=== PATIENT | male | born 1940 | race Caucasian/White ===

== ENCOUNTER 2016-07-26 20:26 | Inpatient (IN) | payer MEDICARE, OTHER, MEDICAID ==
[2016-07-26] MEDS ORDERED: Acetaminophen 500 MG Tab ONE (20:36)
--- NOTE | 2016-07-26 20:58 | EDM.PDOC ---
ED HPI GENERAL MEDICAL PROBLEM - General Chief Complaint: Neuro Symptoms/Deficits Stated Complaint: POSSIBLE STROKE Time Seen by Provider: 07/26/16 20:49 Source of Information: Reports: Patient, EMS, Family History Limitations: Reports: No Limitations, Altered Mental Status, Other ( Index Clerk Dr. Vicente Pettit in [facility] in [place] Wednesday.) - History of Present Illness INITIAL COMMENTS - FREE TEXT/NARRATIVE: Patient brought to ER via ambulance states some neurological changes and confusion noted around 7:00 pm this day. She states she and other family members were to a picnic today and patient chose to stay in car most of the day. She affirms he may have become over heated as he had access to water but did not drink any. She affirms recently dialysis with "higher concentration solution" Wednesday all labs were WNL. He did eat this am has not eaten since.Ambulance states when arrived to scene he was alert and talking to EMS no neurological deficit noted. Assisted to ambulance cart self ambulation. Onset: Today Onset Date: 07/26/16 Onset Time: 19:00 Duration: Hour(s): Associated Symptoms: Reports: Confusion, Fever/Chills, Loss of Appetite - Related Data Allergies Allergy/AdvReac Type Severity Reaction Status Date / Time Penicillins Allergy Hives Verified 07/26/16 20:23 Home Meds: Home Meds Acetaminophen [Tylenol] 1 - 2 tab PO DAILY PRN 10/27/13 [History] Aspirin 325 mg PO DAILY 10/27/13 [History] Diltiazem HCl [Dilt-XR] 120 mg PO DAILY 10/27/13 [History] Docusate Sodium [Colace] 100 mg PO TID PRN 10/27/13 [History] Furosemide [Furosemide] 20 mg PO DAILY 10/27/13 [History] Gemfibrozil [Lopid] 600 mg PO BID 10/27/13 [History] Losartan [Cozaar] 50 mg PO BID 10/27/13 [History] Metoprolol Succinate [Toprol Xl] 100 mg PO DAILY 10/27/13 [History] [place]-3/DHA/Epa/Fish Oil [[place]-3 Fish Oil 1,000 MG Sfgl] 1,000 mg PO DAILY 07/05 [History] Ondansetron [Zofran] 4 mg PO Q6H PRN 10/27/13 [History] Pantoprazole [Protonix] 40 mg PO DAILY 10/27/13 [History] Simvastatin [Simvastatin] 40 mg PO DAILY 10/27/13 [History] amLODIPine [Norvasc] 2.5 mg PO DAILY 10/27/13 [History] glipiZIDE [Glipizide Xl] 10 mg PO BID 10/27/13 [History] traMADol [Ultram] 50 mg PO TID PRN 10/27/13 [History] Albuterol [Proair HFA] 1 puff INH Q4H PRN 04/18/14 [History] Budesonide/Formoterol [Symbicort 160-4.5 Mcg Inhaler] 2 puff INH DAILY 04/18/14 [History] ClonazePAM [KlonoPIN] 1 mg PO BEDTIME PRN 04/18/14 [History] Gabapentin [Neurontin] 100 mg PO BID 04/18/14 [History] Omeprazole [Omeprazole] 20 mg PO DAILY 04/18/14 [History] Sucralfate [Carafate] 1 gm PO TID 04/18/14 [History] Tamsulosin HCl [Flomax] 0.4 mg PO DAILY 04/18/14 [History] Past Medical History HEENT History: Reports: Cataract, Hard of Hearing Cardiovascular History: Reports: Arrhythmia, CAD, Cardiomyopathy, Heart Valve Replacement, Other (See Below) (Bypass) Respiratory History: Reports: COPD Genitourinary History: Reports: Dialysis, Dialysis, Peritoneal Musculoskeletal History: Reports: Back Pain, Chronic, Osteoarthritis Neurological History: Reports: Concussion Psychiatric History: Reports: Other (See Below) ("Fugue") Endocrine/Metabolic History: Reports: Diabetes, Type II, Hypoparathyroidism, Osteoporosis Hematologic History: Reports: None Immunologic History: Reports: None Oncologic (Cancer) History: Reports: None Dermatologic History: Reports: None - Infectious Disease History Infectious Disease History: Reports: None, MRSA, Other (See Below) Social & Family History - Tobacco Use Smoking Status *Q: Unknown Ever Smoked Years of Tobacco use: 30 Used Tobacco, but Quit: Yes Month Tobacco Last Used: 4-5 years ago - Alcohol Use Alcohol Use History: Yes Alcohol Use in Last Twelve Months: No Alcohol Use Frequency: Binges (Not drank ETOH for 15 years) - Recreational Drug Use Recreational Drug Use: No - Living Situation & Occupation Living situation: Reports: , with Family 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 Denies: Chills, Fatigue, Night Sweats, Weight Loss, Weight Gain HEENT: Reports: Vision Change Respiratory: Reports: No Symptoms Cardiovascular: Reports: Blood Pressure Problem Endocrine: Reports: Fatigue GI/Abdominal: Reports: Decreased Appetite : Reports: Incontinence (Decreased output-), Other Musculoskeletal: Reports: No Symptoms Skin: Reports: No Symptoms Neurological: Reports: Confusion Psychiatric: Reports: No Symptoms Hematologic/Lymphatic: Reports: No Symptoms Immunologic: Reports: No Symptoms ED EXAM, NEURO - Physical Exam Exam: See Below Exam Limited By: Altered Mental Status General Appearance: Alert, WD/WN, No Apparent Distress Eye Exam: Bilateral Eye: EOMI, Normal Fundi, Normal Inspection, Nystagmus ( Negative), PERRL Ears: Normal External Exam, Normal Canal, Normal TMs, Hearing Loss Nose: Normal Inspection, Normal Mucosa, No Blood Throat/Mouth: Normal Inspection, Normal Lips, Normal Oropharynx, Normal Voice, No Airway Compromise Head Exam: Atraumatic, Normocephalic Neck: Normal Inspection, Supple, Non-Tender, Full Range of Motion Respiratory/Chest: No Respiratory Distress, Lungs Clear, Normal Breath Sounds Cardiovascular: Normal Peripheral Pulses, Regular Rate, Rhythm, No Edema, Systolic Murmur GI/Abdominal: Normal Bowel Sounds (Peritoneal dialysis port in RLQ region.), Soft, Non-Tender, Other (Male) Exam: Deferred Rectal (Males) Exam: Deferred Neurological: Alert, Normal Mood/Affect, Normal Dorsiflexion, CN II-XII Intact, Normal Plantar Flexion, Normal Reflexes, No Motor/Sensory Deficits, Oriented x 3 Back Exam: Normal Inspection, Full Range of Motion Extremities: Normal Inspection, Normal Range of Motion, Non-Tender, No Pedal Edema, Normal Capillary Refill Psychiatric: Normal Affect, Normal Mood Skin Exam: Warm, Dry, Intact, Normal Color, No Rash (Verbalization appropriate- deliberate) EKG INTERPRETATION Rhythm: NSR Course - Vital Signs Last Recorded V/S: Last Vital Signs Temp 38.7 C H 07/26/16 20:47 Pulse 75 07/26/16 20:47 Resp 18 07/26/16 20:47 BP 159/67 H 07/26/16 20:47 Pulse Ox 97 07/26/16 20:47 - Orders/Labs/Meds Orders: Active Orders 24 hr Category Date Time Status C-REACTIVE PROTEIN [CHEM] Stat Lab 07/26/16 20:38 Ordered CBC WITH AUTO DIFF [HEME] Stat Lab 07/26/16 20:38 Ordered COMPREHENSIVE METABOLIC PN,CMP [CHEM] Stat Lab 07/26/16 20:38 Ordered CREATINE KINASE,CK [CHEM] Stat Lab 07/26/16 20:38 Ordered CULTURE BLOOD [BC] Stat Lab 07/26/16 20:41 Ordered CULTURE BLOOD [BC] Stat Lab 07/26/16 20:41 Ordered PTT,PARTIAL THROMBOPLSTIN TIME [COAG] Stat Lab 07/26/16 20:38 Ordered TROPONIN I [CHEM] Stat Lab 07/26/16 20:38 Ordered UA W/MICROSCOPIC [URIN] Stat Lab 07/26/16 20:38 Uncollected Blood Culture x2 Reflex Set [OM.PC] Stat Oth 07/26/16 20:41 Ordered Meds: Medications Discontinued Medications Generic Name Dose Route Start Last Admin Trade Name Freq PRN Reason Stop Dose Admin Acetaminophen Confirm 07/26/16 20:36 Tylenol Extra Strength Administered 07/26/16 20:37 Dose 1,000 mg .ROUTE .STK-MED ONE Departure - Departure Time of Disposition: 21:34 Disposition: Refer to Observation Condition: fair Clinical Impression: Confusion, Renal failure (ARF), acute on chronic, Febrile illness, acute, Leukocytosis, unspecified - Discharge Information Forms: ED Department Discharge - Problem List & Annotations (1) Confusion SNOMED Code(s): 482881350 Code(s): R41.0 - DISORIENTATION, UNSPECIFIED Status: Acute (2) Renal failure (ARF), acute on chronic SNOMED Code(s): 254758834 Code(s): N17.9 - ACUTE KIDNEY FAILURE, UNSPECIFIED; N18.9 - CHRONIC KIDNEY DISEASE, UNSPECIFIED Status: Acute Qualifiers: Chronic kidney disease stage: on chronic dialysis (3) Febrile illness, acute SNOMED Code(s): 067517879 Code(s): R50.9 - FEVER, UNSPECIFIED Status: Acute (4) Leukocytosis, unspecified SNOMED Code(s): 660434845, 287956640 Code(s): D72.829 - ELEVATED WHITE BLOOD CELL COUNT, UNSPECIFIED Status: Acute - My Orders Last 24 Hours: My Active Orders 07/26/16 20:38 C-REACTIVE PROTEIN [CHEM] Stat CBC WITH AUTO DIFF [HEME] Stat COMPREHENSIVE METABOLIC PN,CMP [CHEM] Stat CREATINE KINASE,CK [CHEM] Stat PTT,PARTIAL THROMBOPLSTIN TIME [COAG] Stat TROPONIN I [CHEM] Stat UA W/MICROSCOPIC [URIN] Stat 07/26/16 20:41 CULTURE BLOOD [BC] Stat CULTURE BLOOD [BC] Stat Blood Culture x2 Reflex Set [OM.PC] Stat - Assessment/Plan Admission H&P: Please use this note as an admission H&P Last 24 Hours: My Active Orders 07/26/16 20:38 C-REACTIVE PROTEIN [CHEM] Stat CBC WITH AUTO DIFF [HEME] Stat COMPREHENSIVE METABOLIC PN,CMP [CHEM] Stat CREATINE KINASE,CK [CHEM] Stat PTT,PARTIAL THROMBOPLSTIN TIME [COAG] Stat TROPONIN I [CHEM] Stat UA W/MICROSCOPIC [URIN] Stat 07/26/16 20:41 CULTURE BLOOD [BC] Stat CULTURE BLOOD [BC] Stat Blood Culture x2 Reflex Set [OM.PC] Stat Assessment:: Altered mental status episode Febrile Illness Dehydration Renal Failure on Dialysis Leukocytosis Plan: Admit to observation. Hydration Fever control Continue Dialysis this pm per -caregiver Antibiotic therapy. Patient to see Dr. Ma in am for further order and treatment.
[2016-07-26] MEDS ORDERED: Acetaminophen 500 MG Tab PO ONE (20:59)
[2016-07-26] MEDS ORDERED: Sodium Chloride 0.9% 1,000 ML ONE (21:22)
[2016-07-26] MEDS ORDERED: traMADol 50 MG Tab PO PRN (21:47)
[2016-07-26] MEDS ORDERED: ClonazePAM 1 MG Tab PO PRN (21:47)
[2016-07-26] MEDS ORDERED: Docusate Sodium 100 MG Cap PO PRN ×2 (21:47→22:01)
[2016-07-26] MEDS ORDERED: Non-Formulary Medication 1 Each (Ondansetron 4 MG) PO PRN (21:47)
[2016-07-26] MEDS ORDERED: Albuterol 8 GM Inhaler INH PRN (21:47)
[2016-07-26] MEDS ORDERED: Sodium Chloride 0.9% 10 ML Syringe FLUSH PRN (22:01)
[2016-07-26] MEDS ORDERED: Ondansetron 4 MG Tab.DIS PO PRN (22:01)
[2016-07-26] MEDS ORDERED: Acetaminophen 325 MG Tab PO PRN (22:01)
[2016-07-26] MEDS ORDERED: cefTRIAXone 1 GM Vial IVPUSH ONE (22:19)
--- NOTE | 2016-07-26 22:21 | PCM.HP ---
H&P History of Present Illness - General Date of Service: 07/26/16 Admit Problem/Dx: Admission Diagnosis/Problem Admission Diagnosis/Problem Febrile disorder Source of Information: Patient, EMS, Family History Limitations: Reports: Altered Mental Status. Denies: Combative/ Threatening - History of Present Illness Initial Comments - Free Text/Narative: Patient admission to acute care for neurological deficit episode, renal insuffiency on perioneal dialysis and febrile illness. Please see ER note. Onset of Symptoms: Reports: Today Symptom Onset Date: 07/26/16 Symptom Onset Time: 17:00 Duration of Symptoms: Reports: Hour(s): Severity: Mild Improves with: Reports: None Worsens with: Reports: None Associated Symptoms: Reports: Confusion, Fever/Chills, Weakness. Denies: Cough , Diaphoresis, Headaches, Nausea/Vomiting - Related Data Allergies/Adverse Reactions: Allergies Allergy/AdvReac Type Severity Reaction Status Date / Time Penicillins Allergy Hives Verified 07/26/16 20:23 Home Medications: Home Meds Acetaminophen [Tylenol] 1 - 2 tab PO DAILY PRN 10/27/13 [History] Aspirin 325 mg PO DAILY 10/27/13 [History] Gemfibrozil [Lopid] 600 mg PO BID 10/27/13 [History] Simvastatin [Simvastatin] 40 mg PO DAILY 10/27/13 [History] glipiZIDE [Glipizide Xl] 10 mg PO BID 10/27/13 [History] Albuterol [Proair HFA] 1 puff INH Q4H PRN 04/18/14 [History] Budesonide/Formoterol [Symbicort 160-4.5 Mcg Inhaler] 2 puff INH DAILY 04/18/14 [History] ClonazePAM [KlonoPIN] 1 mg PO BEDTIME PRN 04/18/14 [History] Gabapentin [Neurontin] 100 mg PO BID 04/18/14 [History] Omeprazole [Omeprazole] 20 mg PO DAILY 04/18/14 [History] Sucralfate [Carafate] 1 gm PO TID 04/18/14 [History] Tamsulosin HCl [Flomax] 0.4 mg PO DAILY 04/18/14 [History] Carvedilol [Carvedilol] 25 mg PO BID 07/26/16 [History] Levothyroxine [Synthroid] 88 mcg PO DAILY 07/26/16 [History] Magnesium 250 mg PO BID 07/26/16 [History] Melatonin 3 mg PO BEDTIME 07/26/16 [History] Potassium Chloride 20 meq PO DAILY 07/26/16 [History] prednisoLONE Acetate [Pred Forte 1% Ophth Susp] 1 drop EYELF TID 07/26/16 [ History] Past Medical History HEENT History: Reports: Cataract, Hard of Hearing Cardiovascular History: Reports: Arrhythmia, CAD, Cardiomyopathy, Heart Valve Replacement, Other (See Below) (Bypass) Respiratory History: Reports: COPD Genitourinary History: Reports: Dialysis, Dialysis, Peritoneal Musculoskeletal History: Reports: Back Pain, Chronic, Osteoarthritis Neurological History: Reports: Concussion Psychiatric History: Reports: Other (See Below) ("Fugue") Endocrine/Metabolic History: Reports: Diabetes, Type II, Hypoparathyroidism, Osteoporosis Hematologic History: Reports: None Immunologic History: Reports: None Oncologic (Cancer) History: Reports: None Dermatologic History: Reports: None - Infectious Disease History Infectious Disease History: Reports: None, MRSA, Other (See Below) Social & Family History - Tobacco Use Smoking Status *Q: Former Smoker Years of Tobacco use: 30 Used Tobacco, but Quit: Yes Month Tobacco Last Used: 10 years ago - Caffeine Use Caffeine Use: Reports: Coffee, Tea - Recreational Drug Use Recreational Drug Use: No - Living Situation & Occupation Living situation: Reports: , with Family 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 Denies: Depression, Mood Lability, Anxiety, Agitation, Cravings, Hallucinations, Suicidal Ideation Neurological: Reports: Confusion, Change in Speech, Other (Stroke Intake Negative with exception of not knowing today's date) Hematologic/Lymphatic: Reports: No Symptoms Immunologic: Reports: No Symptoms Exam - Exam Exam: See Below - Vital Signs Vital Signs: Last Vital Signs Temp 38.7 C H 07/26/16 21:00 Pulse 75 07/26/16 20:47 Resp 18 07/26/16 20:47 BP 159/67 H 07/26/16 20:47 Pulse Ox 97 07/26/16 20:47 Weight: 93.123 kg - Exam Quality Assessment: No: DVT Prophylaxis (Held secondary to decreased Cr Clearance), Skin Breakdown General: Alert, Oriented, Cooperative. No: Mild Distress HEENT: Conjunctiva Clear, EOMI, Hearing Intact, Mucosa Moist & [place], Nares Patent, Normal Nasal Septum, Posterior Pharynx Clear, Pupils Equal, Pupils Reactive, TMs Clear Neck: Supple, Trachea Midline Lungs: Clear to Auscultation, Normal Respiratory Effort Cardiovascular: Regular Rate, Regular Rhythm, Systolic Murmur Abdomen: Normal Bowel Sounds, Soft. No: Rigidity, Rebound (Male) Exam: Deferred Rectal (Males) Exam: Deferred Back Exam: Normal Inspection, Full Range of Motion Extremities: Normal Inspection Peripheral Pulses: 3+: Radial (L), Radial (R), Popliteal (L), Popliteal (R), Dorsalis Pedis (L), Dorsalis Pedis (R) Skin: Warm, Dry, Intact, Other (Dialysis port RLQ) Neuro Extensive - Mental Status: Alert, Oriented x3, Normal Mood/Affect, Slow Response to Commands Neuro Extensive - Motor, Sensory, Reflexes: Normal Gait, Normal Reflexes. No: Tongue Deviation (L), Tongue Deviation (R), Receptive Aphasia, Expressive Aphasia, Total Aphasia, Facial palsy (L), Facial Palsy (R), Motor/Sensory Deficits DTR: 2+: Bicep (L), Bicep (R), Patella (L), Patella (R), Achilles (L), Achilles (R) Psychiatric: Alert, Normal Affect, Normal Mood. No: Labile Mood, Anxious, Agitated - Patient Data Result Diagrams: 07/26/16 21:00 07/26/16 21:00 Imaging Impressions last 24 hrs: CXR-No acute tvdzmap-Ffovsvjztxtw-BVD-Valve CT Tfgbz-Gwdaehu-Eujgl and Large Vessel disease no acute changes. *Q Meaningful Use (ADM) - VTE *Q VTE Criteria *Q: VTE Mechanical Contraindications *Q: At Risk for Falls VTE Pharmacological Contraindications *Q: Renal Impairment - Stroke *Q Stroke Criteria *Q: - AMI *Q AMI Criteria *Q: - Problem List (1) Confusion SNOMED Code(s): 217183389 ICD Code: R41.0 - DISORIENTATION, UNSPECIFIED Status: Acute Current Visit : Yes (2) Renal failure (ARF), acute on chronic SNOMED Code(s): 304020629 ICD Code: N17.9 - ACUTE KIDNEY FAILURE, UNSPECIFIED; N18.9 - CHRONIC KIDNEY DISEASE, UNSPECIFIED Status: Acute Current Visit: Yes Qualifiers: Chronic kidney disease stage: on chronic dialysis (3) Febrile illness, acute SNOMED Code(s): 426924433 ICD Code: R50.9 - FEVER, UNSPECIFIED Status: Acute Current Visit: Yes (4) Leukocytosis, unspecified SNOMED Code(s): 881867956, 932574209 ICD Code: D72.829 - ELEVATED WHITE BLOOD CELL COUNT, UNSPECIFIED Status: Acute Current Visit: Yes Problem List Initiated/Reviewed/Updated: Yes Orders Last 24hrs: Medication Orders Acetaminophen (Tylenol) 650 mg PO Q4H PRN PRN Reason: Pain (Mild 1-3)/fever Albuterol (Ventolin Hfa) 0 gm INH Q4H PRN PRN Reason: Dyspnea Amlodipine Besylate (Norvasc) 2.5 mg PO DAILY ZAC Aspirin (Aspirin) 325 mg PO DAILY ZAC Clonazepam (Klonopin) 1 mg PO BEDTIME PRN PRN Reason: Sleep Docusate Sodium (Colace) 100 mg PO TID PRN PRN Reason: Constipation Docusate Sodium (Colace) 100 mg PO BID PRN PRN Reason: Constipation Gabapentin (Neurontin) 100 mg PO BID ZAC Gemfibrozil (Lopid) 600 mg PO BID [facility] Sodium Chloride (Normal Saline) 1,000 mls @ 125 mls/hr IV ASDIRECTED ZAC Metoprolol Succinate (Toprol Xl) 100 mg PO DAILY ZAC Non-Formulary Medication (Budesonide/Formoterol) 2 puff INH DAILY ZAC Non-Formulary Medication (Diltiazem Hcl [Dilt-Xr]) 120 mg PO DAILY ZAC Non-Formulary Medication (Losartan [Cozaar]) 50 mg PO BID ZAC Non-Formulary Medication ([place]-3/Dha/Epa/Fish Oil [[place]-3 Fish Oil 1,000 Mg Sfgl]) 1,000 mg PO DAILY ZAC Non-Formulary Medication (Omeprazole [Omeprazole]) 20 mg PO DAILY ZAC Non-Formulary Medication (Ondansetron) 4 mg PO Q6H PRN PRN Reason: Nausea Non-Formulary Medication (Glipizide [Glipizide Xl]) 10 mg PO BID [facility] Ondansetron HCl (Zofran Odt) 4 mg PO Q4H PRN PRN Reason: nausea, able to take PO Simvastatin (Zocor) 40 mg PO DAILY [facility] Sodium Chloride (Saline Flush) 10 ml FLUSH ASDIRECTED PRN PRN Reason: Keep Vein Open Sucralfate (Carafate) 1 gm PO TID [facility] Tamsulosin HCl (Flomax) 0.4 mg PO DAILY [facility] Tramadol HCl (Ultram) 50 mg PO TID PRN PRN Reason: Pain Assessment/Plan Comment:: CXR report Dr. Sams Oyhenaskc-Fujrpfbcdgxg-Hnjg CHF-Valve Replacement-No acute disease. CT Rfuoc-Ixhovzs-Svedu and Large Vessel disease. No acute changes.
[2016-07-26] MEDS: Sodium Chloride 0.9% 1,000 ML IV SCH (22:47)
[2016-07-27] MEDS ORDERED: Levothyroxine 88 MCG Tab PO SCH (07:00)
[2016-07-27] MEDS ORDERED: glipiZIDE 5 MG Tab.ER PO SCH (07:00)
[2016-07-27] MEDS ORDERED: Pantoprazole 40 MG Tab.CR PO SCH (07:00)
[2016-07-27] MEDS ORDERED: Gemfibrozil 600 MG Tab PO SCH ×2 (08:00)
[2016-07-27] MEDS ORDERED: Sucralfate 1 GM Tab PO SCH (08:00)
[2016-07-27] MEDS ORDERED: Aspirin 325 MG Tab.EC PO SCH (08:00)
[2016-07-27] MEDS ORDERED: Aspirin 325 MG Tab PO SCH (08:00)
[2016-07-27] MEDS ORDERED: Simvastatin 40 MG Tab PO SCH ×2 (08:00)
[2016-07-27] MEDS ORDERED: Potassium Chloride 10 MEQ Tab.ER PO SCH (08:00)
[2016-07-27] MEDS ORDERED: amLODIPine 2.5 MG Tab PO SCH (08:00)
[2016-07-27] MEDS ORDERED: Non-Formulary Medication 1 Each (Diltiazem Hcl [Dilt-Xr] 120 MG) PO SCH (08:00)
[2016-07-27] MEDS ORDERED: Aspirin 81 MG Tab.EC PO SCH (08:00)
[2016-07-27] MEDS ORDERED: Non-Formulary Medication 1 Each (Losartan [Cozaar] 50 MG) PO SCH (08:00)
[2016-07-27] MEDS ORDERED: Non-Formulary Medication 1 Each (Budesonide/Formoterol 2 PUFF) INH SCH (08:00)
[2016-07-27] MEDS ORDERED: Carvedilol 12.5 MG Tab PO SCH (08:00)
[2016-07-27] MEDS ORDERED: Gabapentin 100 MG Cap PO SCH (08:00)
[2016-07-27] MEDS ORDERED: Non-Formulary Medication 1 Each (Omeprazole [Omeprazole] 20 MG) PO SCH (08:00)
[2016-07-27] MEDS ORDERED: Non-Formulary Medication 1 Each (Omega-3/Dha/Epa/Fish Oil [Omega-3 Fish Oil 1,000 Mg Sfgl] PO SCH (08:00)
[2016-07-27] MEDS ORDERED: GLIPIZIDE 10 MG PO SCH (08:00)
[2016-07-27] MEDS ORDERED: prednisoLONE Acetate 1% Ophth Susp 5 ML Bottle EYELF SCH (08:00)
[2016-07-27] MEDS ORDERED: Metoprolol Succinate 100 MG Tab.ER PO SCH (08:00)
[2016-07-27] MEDS ORDERED: Tamsulosin 0.4 MG Cap.ER PO SCH (08:00)
[2016-07-27] MEDS: Sodium Chloride 0.9% 1,000 ML IV SCH (08:16)
[2016-07-27 11:40] VITALS: BP 122/66
--- NOTE | 2016-07-27 13:17 | PN ---
DATE: 07/27/2016 S: Brian Portillo came in with acute renal failure. He is known to have problems with that. He also apparently got somewhat confused. There is a question whether he has a CVA, but I suspect the creatinine is doing that. White count is up to 20,000 this morning. Troponins are up. Creatinine is 10.2. Urinalysis looks okay. P: Transfer. BREDNA/MARSHALL /[id number]
--- NOTE | 2016-07-27 15:07 | DISCH ---
HOSPITAL COURSE: Brian Portillo came in yesterday question CVA, TIA. Creatinine was 10.2. He was started on antibiotics because of possible urinary tract infection, but his urine looked good and he had some proteinuria. Troponins mildly elevated. CPK was elevated. Creatinine was 10.2, BUN was 88, white count went from 19,000 yesterday to 20,000 this morning. OBJECTIVE: NECK: On examination prior to discharge, neck was supple. CHEST: Occasional crepitus, left base. CARDIAC: Sounds are okay. Trace pretibial edema. ABDOMEN: Soft. IMPRESSION: 1. Acute and chronic renal insufficiency. Creatinine 10.2. 2. Leukocytosis, question etiology. 3. Diabetes mellitus. 4. Hypothyroidism. 5. Hyperlipidemia. 6. Coronary artery disease. 7. History of congestive heart failure. DISPOSITION: The patient now discharged. [facility] for treatment of acute renal insufficiency. BRENDA/MARSHALL /[id number]
[2016-07-27] MEDS ORDERED: MELATONIN 3 MG PO SCH (20:00)
[2016-07-27] MEDS ORDERED: cefTRIAXone 1 GM Vial IVPUSH SCH (20:00)
== END 2016-07-27 12:25 | DRG 684 ==
LOC: CC.ED 20:26 → UNDOADMIN 21:58 → CC.MS 21:58
PROVIDERS: ADMIT Nurse Practitioner; ATTEND General Practice
DX: R41.0 Disorientation, unspecified (principal); N17.9 Acute kidney failure, unspecified; N18.9 Chronic kidney disease, unspecified; D72.829 Elevated white blood cell count, unspecified; R50.9 Fever, unspecified; E11.9 Type 2 diabetes mellitus without complications; E03.9 Hypothyroidism, unspecified; E78.5 Hyperlipidemia, unspecified; I25.10 Atherosclerotic heart disease of native coronary artery without angina pectoris; I50.9 Heart failure, unspecified; Z99.2 Dependence on renal dialysis; J44.9 Chronic obstructive pulmonary disease, unspecified
CPT/HCPCS: 36415; 70450; 71020; 80053; 82550; 83605; 84484; 85025; 85610; 85730; 86140; 87040 ×2; 99285; A9270; 81001; 82962; 83735; 93005; J0696; J7030